=== PATIENT | female | born 1950 | race African-American/Black ===

== ENCOUNTER 2021-12-14 11:14 | Outpatient (CLI) | payer MEDICARE, SELFPAY ==
[2021-12-14 11:49] LABS: Hemoglobin 12.3 g/dL (12.0-15.0); Mean Corpuscular HGB Conc 31.5 g/dl (32-36); Mean Corpuscular Hemoglobin 23.9 pg (26-34); Mean Corpuscular Volume 75.9 fl (80-100); Mean Platelet Volume 9.9 fl (7.4-10.4); Platelet Count Result 287 k/mm3 (150-375); Red Blood Count 5.14 M/mm3 (4.2-5.4); Red Cell Distribution Width 15.8 % (11.5-14.5); White Blood Count 9.7 K/mm3 (4.5-10.0)
[2021-12-14 12:11] LABS: LDL Cholesterol Direct 58 mg/dL
[2021-12-14 12:17] LABS: Alanine Aminotransferase 45 U/L (6-35); Albumin Level 4.5 g/dL (3.5-5.1); Alkaline Phosphatase 85 U/L (38-126); Anion Gap 13 mmol/L (8-16); Aspartate Amino Transferase 45 U/L (14-36); Bilirubin,Total 0.7 mg/dL (0.2-1.3); Blood Urea Nitrogen 14 mg/dL (7-17); Calcium 9.4 mg/dL (8.4-10.2); Carbon Dioxide 24 mmol/L (22-30); Chloride 105 mmol/L (98-107); Cholesterol 122 mg/dL (0-200); Estimated Glomerular Filt Rate > 60; Glucose 107 mg/dL (65-110); HDL Direct 32 mg/dL; Potassium 3.8 mmol/L (3.4-5.0); Sodium 142 mmol/L (137-145); Triglycerides 88 mg/dL (<150)
[2021-12-14 12:21] LABS: Hemoglobin A1C 5.8 % (<5.7)
[2021-12-14 12:39] LABS: Iron 91 ug/dL (37-170)
[2021-12-14 12:49] LABS: Percent Iron Saturation 42 % (20-50)
== END 2021-12-14 11:15 | disposition home or self-care (01) ==
LOC: ANHLAB 11:15
PROVIDERS: PCP Family Medicine; Visit Provider Physician Assistant
DX: D64.9 Anemia, unspecified (principal); E11.9 Type 2 diabetes mellitus without complications; Z13.220 Encounter for screening for lipoid disorders
CPT/HCPCS: 36415; 80053; 80061; 83036; 83540; 83550; 85027

== ENCOUNTER 2022-05-18 11:48 | Outpatient (CLI) | payer MEDICARE, SELFPAY ==
[2022-05-18 13:11] LABS: Basophils Percent Auto 0.4 % (0.2-1.2); Eosinophils Absolute Auto 0.1 K/mm3 (0-0.3); Eosinophils Percent Auto 1.4 % (0-4.4); Hematocrit 39.5 % (37.0-47.0); Hemoglobin 12.5 g/dL (12.0-15.0); Immature Granulocyte Absolute 0.02 K/mm3 (0.00-0.031); Immature Granulocyte Percent A 0.2 % (0-0.5); Lymphocytes Absolute Auto 2.94 K/mm3 (0.9-3.2); Lymphocytes Percent Auto 29.1 % (18.3-44.2); Mean Corpuscular HGB Conc 31.6 g/dl (32-36); Mean Corpuscular Hemoglobin 23.2 pg (26-34); Mean Corpuscular Volume 73.4 fl (80-100); Mean Platelet Volume 10.5 fl (7.4-10.4); Monocytes Absolute Auto 0.9 K/mm3 (0.1-0.6); Monocytes Percent Auto 9.3 % (2.6-8.5); Neutrophils Percent Auto 59.6 % (45.5-73.1); Platelet Count Result 295 k/mm3 (150-375); Red Blood Count 5.38 M/mm3 (4.2-5.4); Red Cell Distribution Width 15.2 % (11.5-14.5); White Blood Count 10.1 K/mm3 (4.5-10.0)
[2022-05-18 13:24] LABS: Potassium 3.9 mmol/L (3.4-5.0)
[2022-05-18 13:25] LABS: Alanine Aminotransferase 40 U/L (6-35); Albumin Level 4.6 g/dL (3.5-5.1); Alkaline Phosphatase 85 U/L (38-126); Anion Gap 4 mmol/L (8-16); Aspartate Amino Transferase 30 U/L (14-36); Bilirubin,Total 0.8 mg/dL (0.2-1.3); Blood Urea Nitrogen 13 mg/dL (7-17); Calcium 10.1 mg/dL (8.4-10.2); Carbon Dioxide 31 mmol/L (22-30); Chloride 101 mmol/L (98-107); Estimated Glomerular Filt Rate > 60; Glucose 97 mg/dL (65-110); Sodium 136 mmol/L (137-145)
== END 2022-05-18 11:49 | disposition home or self-care (01) ==
LOC: ANHLAB 11:53
PROVIDERS: PCP Family Medicine; Visit Provider Internal Medicine Cardiovascular Disease
DX: I25.10 Atherosclerotic heart disease of native coronary artery without angina pectoris (principal); I10 Essential (primary) hypertension; E78.5 Hyperlipidemia, unspecified
CPT/HCPCS: 36415; 80053; 85025

== ENCOUNTER 2022-10-05 08:33 | Outpatient (CLI) | payer MEDICARE, SELFPAY ==
--- NOTE | ~2022-10-05 | MM_ITS ---
EXAMINATION: MM screening [facility] BI w eulogio HISTORY: Screening mammogram TECHNIQUE: Craniocaudal and mediolateral oblique 3-D tomosynthesis images were obtained and synthetic 2-D images were generated. CAD analysis was submitted and interpreted. COMPARISON: 06/17/2018, 08/25/2016, 04/11/2015 BREAST PARENCHYMAL COMPOSITION: There are scattered areas of fibroglandular density. FINDINGS: A stable mass of the outer right breast is considered benign given the lack of interval medardo nge. No suspicious mass, calcification, or architectural distortion are identified in either breast t o suggest malignancy. There has been no suspicious interval change. IMPRESSION: 1. No mammographic evidence of malignancy. 2. Recommend routine screening mammography in one year. BI-RADS Category 2: Benign finding(s). Reviewed, dictated and finalized at location A.
== END 2022-10-05 08:34 | disposition home or self-care (01) ==
LOC: ANHIMG 08:37
PROVIDERS: PCP Family Medicine; Visit Provider Physician Assistant Medical
DX: Z12.31 Encounter for screening mammogram for malignant neoplasm of breast (principal)
CPT/HCPCS: 77063; 77067

== ENCOUNTER 2023-01-08 11:32 | Outpatient (CLI) | payer MEDICARE, SELFPAY ==
[2023-01-08 12:02] LABS: Basophils Percent Auto 0.2 % (0.2-1.2); Eosinophils Absolute Auto 0.2 K/mm3 (0-0.3); Eosinophils Percent Auto 2.1 % (0-4.4); Hematocrit 37.8 % (37.0-47.0); Hemoglobin 11.9 g/dL (12.0-15.0); Immature Granulocyte Absolute 0.02 K/mm3 (0.00-0.031); Immature Granulocyte Percent A 0.2 % (0-0.5); Lymphocytes Absolute Auto 2.96 K/mm3 (0.9-3.2); Lymphocytes Percent Auto 34.3 % (18.3-44.2); Mean Corpuscular HGB Conc 31.5 g/dl (32-36); Mean Corpuscular Hemoglobin 23.8 pg (26-34); Mean Corpuscular Volume 75.8 fl (80-100); Mean Platelet Volume 10.2 fl (7.4-10.4); Monocytes Absolute Auto 0.8 K/mm3 (0.1-0.6); Monocytes Percent Auto 9.7 % (2.6-8.5); Neutrophils Absolute Auto 4.6 K/mm3 (1.3-6.7); Neutrophils Percent Auto 53.5 % (45.5-73.1); Platelet Count Result 269 k/mm3 (150-375); Red Blood Count 4.99 M/mm3 (4.2-5.4); Red Cell Distribution Width 15.2 % (11.5-14.5); White Blood Count 8.6 K/mm3 (4.5-10.0)
[2023-01-08 12:15] LABS: Alanine Aminotransferase 34 U/L (6-35); Albumin Level 4.3 g/dL (3.5-5.1); Alkaline Phosphatase 78 U/L (38-126); Anion Gap 5 mmol/L (8-16); Aspartate Amino Transferase 29 U/L (14-36); Bilirubin,Total 0.8 mg/dL (0.2-1.3); Blood Urea Nitrogen 14 mg/dL (7-17); Calcium 9.9 mg/dL (8.4-10.2); Carbon Dioxide 30 mmol/L (22-30); Chloride 103 mmol/L (98-107); Estimated Glomerular Filt Rate > 60; Glucose 100 mg/dL (65-110); Hemoglobin A1C 5.6 % (<5.7); Sodium 138 mmol/L (137-145)
[2023-01-08 12:45] LABS: Thyroid Stimulating Hormone 0.844 uIU/mL (0.465-4.680)
== END 2023-01-08 11:33 | disposition home or self-care (01) ==
PROVIDERS: PCP Family Medicine; Visit Provider Internal Medicine Cardiovascular Disease
DX: I25.10 Atherosclerotic heart disease of native coronary artery without angina pectoris (principal); R73.03 Prediabetes
CPT/HCPCS: 36415; 80053; 83036; 84443; 85025

== ENCOUNTER 2023-02-13 09:42 | Outpatient (CLI) | payer MEDICARE, SELFPAY ==
--- NOTE | ~2023-02-13 | CT_ITS ---
CT Scan of the Chest without Contrast: Clinical Indication: Lung cancer screening, personal history of nicotine dependence Technique: Contiguous sections were acquired throughout the chest without intravenous contrast. Dose reduction technique was used on this scan by utilizing automated exposure control and iterative recon struction technique. The dose-length product (DLP) was 207.41 mGy-cm. COMPARISON: 11/12/2018 Findings: There is no evidence of any significant mediastinal, hilar or axillary lymphadenopathy. There are ath erosclerotic calcifications of the aorta and coronary arteries. There is no evidence of pleural or pericardial effusion. Stable areas of chronic interstitial change in the upper lobes. No pulmonary nodule seen. Images through the upper abdomen reveal no abnormalities. Impression: Lung RADS 1: Negative. 12 month follow-up screening CT advised. Reviewed, dictated and finalized at [facility]. ISTICAL GENETICIST Impression: Lung RADS 1: Negative. 12 month follow-up screening CT advised.
== END 2023-02-13 09:43 | disposition home or self-care (01) ==
LOC: ANHIMG 09:45
PROVIDERS: PCP Family Medicine; Visit Provider Physician Assistant Medical
DX: Z12.2 Encounter for screening for malignant neoplasm of respiratory organs (principal); Z87.891 Personal history of nicotine dependence
CPT/HCPCS: 71271

== ENCOUNTER 2023-02-15 09:38 | Observation (INO) | payer MEDICARE, SELFPAY ==
[2023-02-15] VITALS (26 sets, daily range): BP systolic 112–158; BP diastolic 68–84; PULSE 69–97; RESP 12–19; TEMP 36–37.4; O2SAT 97–100; BMI 31.4
--- NOTE | 2023-02-15 | ECHO_ITS ---
Patient Info Name: Berkley Peck Age: 72 years : 1950 Gender: Female Ht: 66 in Wt: 216 lbs BSA: 2.18 m2 HR: 78 bpm BP: 134 / 70 mmHg Heart Rhythm: Sinus Rhythm Technical Quality: Fair Exam Date: 02/15/2023 3:22 PM Exam Location: Echo Lab Exam Room: 331 Patient Status: Inpatient Admit Date: 02/15/2023 Staff Ordering Physician: Tanya Quinn APRN Creative Perfumer: Dorys Cleveland RDCS Attending Provider: Odalis Treviño DO Referring Physician: Cheyenne REBOLLEDO; Exam Type: CA echo doppler w bubble study Study Info Indications - TIA R/O CSE Complete two-dimensional, color flow and Doppler transthoracic echocardiogram is performed with agitated saline. Contrast/Agitated Saline Contrast/Ag. Saline: Agitated Saline Amount: 20.00 ml Administered By: Allison Delacruz RN Existing IV Access: Yes IV Access Condition: patent with no signs of infiltration Summary 1. Normal left ventricular size with moderate concentric hypertrophy. There is overall good left ventricular systolic function with an ejection fraction of 60-65%. However there was basal inferior septal hypokinesis. Normal diastolic function. 2. Left atrial chamber dimension is mildly enlarged. 3. Mild pulmonary hypertension, estimated pulmonary arterial systolic pressure is 35 mmHg. 4. No significant valve disease. 5. No evidence of intracardiac shunting during normal respiration and Valsalva by bubble study. 6. Normal sinus rhythm. Left Ventricle Left ventricular chamber dimension is normal. Left ventricular systolic function is normal, estimated at 60-65%. There is moderately increased left ventricular wall thickness. Left ventricular septal wall motion is normal. The left ventricular diastolic function is normal. Right Ventricle Right ventricular chamber dimension is normal. Right ventricular systolic function is normal. Left Atria Left atrial chamber dimension is mildly enlarged. Right Atria Right atrial chamber dimension is normal. Aortic Valve The aortic valve is trileaflet. There is no aortic valve sclerosis. There is no aortic valve stenosis. There is no aortic valve regurgitation. Pulmonic Valve The pulmonic valve is normal. There is no pulmonic valve stenosis. There is no pulmonic regurgitation. Mitral Valve The mitral valve has normal leaflets. There is no mitral valve stenosis. There is trace mitral valve regurgitation. Tricuspid Valve The tricuspid valve leaflets are normal. There is no significant tricuspid valve stenosis. There is trace tricuspid valve regurgitation. Mild pulmonary hypertension, estimated pulmonary arterial systolic pressure is 35 mmHg. Pericardium/Pleural The pericardium appears normal. There is no pericardial effusion. Inferior Vena Cava Normal inferior vena cava with >50% collapse upon inspiration consistent with Empty right atrial pressure, 10 mmHg. Aorta The aortic root size at the sinus of Valsalva is normal. The prox ascending aorta size is normal. Left Ventricular Outflow Tract Name Value Normal LVOT 2D LVOT Diameter 2.0 cm LVOT Doppler LVOT Peak Gradient 5 mmHg LVOT Mean Gra
--- NOTE | ~2023-02-15 | MR_ITS ---
EXAMINATION: MR brain/brain stem wo/w con DATE: 02/15/2023 17:40 INDICATION: Left-sided numbness TECHNIQUE: Magnetic resonance imaging (MRI) of the brain and brainstem was performed without and with 20 mL Multihance intravenous contrast. Sequences included sagittal and axial T1-weighted SE, axial d iffusion-weighted FS SE, axial 3D SWAN, axial T2-weighted FLAIR, and axial T2-weighted FSE. Postcontr ast axial and coronal T1-weighted SE was obtained. Apparent diffusion coefficient (ADC) maps were cre ated. COMPARISON: Brain and carotid CT angiogram dated 02/15/2023 FINDINGS: There are no areas of restricted diffusion to suggest acute infarction. No intracranial hemorrhage or abnormal intracranial mass lesion. There are scattered areas of nonspecific increased T2-weighted si gnal intensity in the cerebral white matter, predominantly involving the deep and periventricular whi te matter which is within normal limits for age. There are no intraparenchymal signal abnormalities s een on the other pulse sequences. The ventricles are symmetric and normal in size. There are no abnor mal extra-axial fluid collections. Flow voids are seen in the cerebral arteries on the T2-weighted se quences consistent with their expected patency. Mild mucosal thickening the bilateral ethmoid sinuses . Changes of bilateral intraocular lens replacement. Visualized orbits and soft tissues are unremark able. There are no areas of abnormal enhancement on the post contrast images. IMPRESSION: 1. Normal aging brain. No acute intracranial process or abnormally enhancing brain lesions. Reviewed, dictated and finalized at location A. GER WORKERS COMPENSATION IMPRESSION: 1. Normal aging brain. No acute intracranial process or abnormally enhancing br ain lesions.
--- NOTE | ~2023-02-15 | CT_ITS ---
EXAMINATION: CTA brain carotid DATE: 02/15/2023 11:27 INDICATION: Left arm numbness. TECHNIQUE: Computed tomographic angiography (CTA) of the head was performed without and with 100 mL O mnipaque-350 intravenous contrast. CTA of the neck was performed with intravenous contrast. Automated exposure control and iterative reconstruction technique were employed. The dose-length product was 1 952.08 mGy-cm. Maximum intensity projection and volume rendered 3D-reconstructions were created by josemanuel martin technologist on a separate workstation. COMPARISON: Head CT 02/09/2005, chest CT 11/12/2018, 02/13/2023 FINDINGS: HEAD CTA: There is no intracranial hemorrhage, acute infarction, or abnormal intracranial mass lesion . There are scattered areas of low attenuation in the cerebral white matter, which is within normal l imits for the patient's age. The ventricles are normal in size. There are likely changes of ocular l ens replacement surgeries. The paranasal sinuses are clear. There is a small left mastoid effusion. T he vertebral arteries are codominant. There is no significant stenosis of basilar artery or the poste rior cerebral arteries. The posterior communicating arteries are normal. There is no significant sten osis of the intracranial internal carotid arteries or anterior or middle cerebral arteries. Anterior communicating artery is normal. There is no aneurysm. NECK CTA: There is mild emphysema. There are chronic groundglass opacities and septal thickening in t he upper lobes, consistent with scarring. There are no pathologically enlarged lymph nodes. There is a 4 mm nodule right thyroid lobe, likely not clinically significant. There is no significant stenosis of the vertebral arteries. There is plaque in the proximal internal carotid arteries. There is 0% st enosis of the proximal right internal carotid artery relative to normal distal artery lumen diameter (NASCET criteria). There is 0% stenosis of the proximal left internal carotid artery relative to norm al distal artery lumen diameter. There is mild cervical spondylosis. IMPRESSION: 1. Normal aging brain. No aneurysm or significant intracranial arterial stenosis. 2. 0% stenosis of the proximal internal carotid arteries relative to normal distal artery lumen diame ters (NASCET criteria). Reviewed, dictated and finalized at location A. TERSINKER BALANCE SCREW HOLE IMPRESSION: 1. Normal aging brain. No aneurysm or significant intracranial arterial stenosi s. 2. 0% stenosis of the proximal internal carotid arteries relative to normal dis suhail artery lumen diameters (NASCET criteria).
--- NOTE | ~2023-02-15 | XR_ITS ---
XR chest 2V DATE: 02/15/2023 11:27 INDICATION: Dizziness. Weakness, numbness, tingling of the head and hands. TECHNIQUE: PA and lateral views COMPARISON: 02/13/2023 CT lung screening 08/19/2013 2 view chest FINDINGS: Normal heart size. No hilar or mediastinal enlargement. No pulmonary infiltrate or consolidation, pleural effusion or pulmonary vascular congestion or pneumo thorax is detected. Degenerative spurring of the thoracic spine. Aortic arch calcification. IMPRESSION: No active cardiopulmonary disease Reviewed, dictated and finalized at location B. RUMENT TECHNICIAN APPRENTICE
--- NOTE | 2023-02-15 10:03 | ECG_ITS ---
Measurements Intervals [place] Rate: 81 P: 62 CT: 183 QRS: 0 QRSD: 110 T: -12 QT: 353 QTc: 412 Interpretive Statements SINUS RHYTHM ATRIAL COUPLET AND ATRIAL PREMATURE COMPLEX NONSPECIFIC ST ELEVATION IN ANT/HIGH LAT LEADS BORDERLINE ST-T WAVE ABNORMALITY- INF/LAT LEADS BORDERLINE ECG NO PREVIOUS ECG AVAILABLE FOR COMPARISON Electronically Signed On 02-15-2023 11:31:25 METAL BASE BLOCKER by Saurabh Lewis D.O.
[2023-02-15 10:19] LABS: Glucose Point of Care 109 mg/dl (65-105)
[2023-02-15 10:22] LABS: Basophils Percent Auto 0.3 % (0.2-1.2); Eosinophils Absolute Auto 0.2 K/mm3 (0-0.3); Eosinophils Percent Auto 2.4 % (0-4.4); Immature Granulocyte Absolute 0.01 K/mm3 (0.00-0.031); Immature Granulocyte Percent A 0.1 % (0-0.5); Lymphocytes Absolute Auto 2.23 K/mm3 (0.9-3.2); Lymphocytes Percent Auto 28.5 % (18.3-44.2); Mean Corpuscular HGB Conc 30.8 g/dl (32-36); Mean Corpuscular Hemoglobin 23.3 pg (26-34); Mean Corpuscular Volume 75.6 fl (80-100); Mean Platelet Volume 10.4 fl (7.4-10.4); Monocytes Absolute Auto 0.8 K/mm3 (0.1-0.6); Monocytes Percent Auto 10.5 % (2.6-8.5); Neutrophils Absolute Auto 4.6 K/mm3 (1.3-6.7); Neutrophils Percent Auto 58.2 % (45.5-73.1); Platelet Count Result 290 k/mm3 (150-375); Red Blood Count 5.16 M/mm3 (4.2-5.4); White Blood Count 7.8 K/mm3 (4.5-10.0)
[2023-02-15 10:33] LABS: Partial Thromboplastin Time 30.2 SECONDS (22.3-36.8); Prothrombin Time 13.4 Seconds (11.1-14.7)
[2023-02-15 10:34] LABS: Alanine Aminotransferase 39 U/L (6-35); Albumin Level 4.3 g/dL (3.5-5.1); Alkaline Phosphatase 75 U/L (38-126); Anion Gap 11 mmol/L (8-16); Aspartate Amino Transferase 29 U/L (14-36); Bilirubin,Total 0.7 mg/dL (0.2-1.3); Blood Urea Nitrogen 13 mg/dL (7-17); Carbon Dioxide 25 mmol/L (22-30); Chloride 106 mmol/L (98-107); Estimated CRCL calculation 59 ml/min; Estimated Glomerular Filt Rate > 60; Glucose 104 mg/dL (65-110); Potassium 3.9 mmol/L (3.4-5.0); Sodium 142 mmol/L (137-145)
[2023-02-15 10:48] LABS: Troponin I < 0.012 ng/mL (0.000-0.034)
[2023-02-15 11:19] LABS: Appearance Urine Turbid (Clear); Bacteria Urine None Seen /hpf; Bilirubin Urine Negative (Negative); Blood Urine Negative (Negative); Color Urine Yellow (Yellow); Glucose Urine UA Negative (Negative); Ketones Urine Trace mg/dL (Negative); Leukocyte Esterase Ur Negative LEU/UL (Negative); Nitrate Urine Negative (Negative); Non Pathogenic Casts 0-2; Protein Urine Negative (Negative); RBC Urine 0-2 /hpf (0-2); Specific Grav Ur 1.025 (1.001-1.035); Squamous Epithelial Cell Urine Occasional /hpf (Few); WBC Urine 0-5 /hpf; pH Urine 6.5 (5.0-9.0)
[2023-02-15 11:41] LABS: Add Urine Microscopic? YES
--- NOTE | 2023-02-15 12:19 | ED.NEUROSD ---
HPI - Neuro Symptoms/Deficit General Chief Complaint: Neuro Symptoms/Deficit Stated Complaint: numbness in left arm and head Time Seen by Provider: 02/15/23 09:52 Source: patient, RN notes reviewed and old records reviewed Mode of arrival: ambulatory Limitations: no limitations History of Present Illness HPI Narrative: This is a 72 year old female who presents for evaluation of left arm and left facial numbness. Patient states she went to bed last night at 10 pm and she woke up this morning at 7 am. She reports she woke up with left arm numbness and left facial, scalp numbness. She also reports shakiness. She has not noticed and weakness to her left arm or left leg. She has not noticed numbness to left leg. She denies facial drooping, speech difficulty. She denies history of CVA or TIA. She denies associated chest pain, shortness of breath. Related Data Home Medications Medication Instructions Recorded Confirmed ascorbate calcium (vitamin C) 500 500 mg PO DAILY 12/19/21 02/15/23 mg tablet aspirin 81 mg tablet,delayed 81 mg PO DAILY 12/19/21 02/15/23 release (Adult Aspirin Regimen) mecobalamin (vitamin B12) 1,000 1,000 mcg PO DAILY 12/19/21 02/15/23 mcg chewable tablet hzxhahkf-ygn-iemed ac 400 1 tablet PO DAILY 12/19/21 02/15/23 mcg-calcium carb 500 mg-vit K1 20 mcg tablet (Women's 50 Plus Multivitamin) omega 8-dpe-xye-fish oil 1,200 mg 1 cap PO DAILY 12/19/21 02/15/23 (144 mg-216 mg) capsule (Fish Oil) cholecalciferol (vitamin D3) 25 25 mcg PO DAILY 02/15/23 02/15/23 mcg (1,000 unit) tablet lisinopril 10 mg tablet 10 mg PO DAILY 02/15/23 02/15/23 Allergies Allergy/AdvReac Type Severity Reaction Status Date / Time egg Allergy Unknown unknown Verified 02/15/23 18:34 Review of Systems Review of Systems: All systems reviewed & are unremarkable except as noted in HPI and below Constitutional: Constitutional: Denies weakness Cardiovascular: Cardiovascular: Denies syncope, Denies rapid heart rate, Denies irregular heart rhythm, Denies leg edema and Denies dyspnea Respiratory: Respiratory: Denies chest congestion, Denies hemoptysis, Denies excessive phlegm production and Denies dyspnea Gastrointestinal: Gastrointestinal: Denies abdominal pain, Denies hematochezia, Denies diarrhea and Denies vomiting Genitourinary: Genitourinary: Denies hematuria and Denies dysuria Musculoskeletal: Musculoskeletal: Denies joint swelling, Denies loss of height and Denies muscle weakness Neurologic: Denies syncope, Denies focal weakness, Reports numbness and Denies weakness [facility] Past Medical History Medical History Asthma CAD (coronary artery disease) Hypercholesterolemia Hypertension Iron deficiency Prediabetes Uterine fibroid Surgical History Surgical History Stented coronary artery Family History Family History (Updated 02/15/23 @ 16:41 by Renee Brito RN) Sibling Carcinoma of colon Diabetes mellitus Sibling Asthma Father Diabetes mellitus Mother Hypertension Social History Social History (Updated 02/15/23 @ 14:56 by Tanya Quinn APRN) Social History: Says that she smoked for 40 years 1 pack per day. Stopped smoking about 7 years ago and then over the last year her so she smokes off and on. 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 She has no children Smoking packs per day: 1 Smoking cigarettes per day: 20.0 Years smoked: 30 Smoking pack-years: 30.00 Smoking status: Current some day smoker Second hand tobacco smoke exposure: No Smoking end date: 04/01/15 Alcohol intake: current Drinks per week: 2 Substance use: never Substance use type: does not use Lack of Transportation: No Lack of Food: Never True Current Housing: I Have Housing Concerned About Future Housing: No Difficulty Paying
--- NOTE | 2023-02-15 14:45 | PM.IMHP ---
H&P: HPI History of Present Illness Date/Time: 02/15/23 14:45 Chief Complaint: Left-sided arm numbness Narrative: This is a 72-year-old female with a past medical history of high blood pressure, high cholesterol, myocardial infarction status post stent placement in 2009. She presents to the ER today after experiencing left-sided arm numbness which progressed to left-sided face and head numbness. She states that she woke up at 7:30 a.m. this morning in her left arm was numb. She did take much of it she thought she had slept wrong. Over the course of the next 2 hours the numbness worsened and did travel to the left side of her face and posterior head. She also noted that she was acting clumsy was unable to put lids open jars and she has noticed that she was having a difficult time with responding when people ask her questions. Her symptoms have all resolved at this time. She says that last night she had a headache before bed for which she took Tylenol and went to sleep. She denies headache, dizziness, vision changes, facial drooping, or weakness to her lower extremities during this episode. She has never experienced anything like this before. In the ER her labs were essentially unremarkable. Initially when she presented she was a little hypertensive 150s over 80s but blood pressures have been ranging 1 teens to 130s this afternoon. CTA of her brain was negative. It shows normal aging brain with no aneurysm or significant intracranial arterial stenosis. Neurology has been consulted for TIA workup. Patient will be admitted under observation status. Echo, brain MRI, and head CTA have all been ordered. NIH is 0. Review of Systems Review of Systems: All systems reviewed & are unremarkable except as noted in HPI and below PMFSH Past Medical History Medical History Asthma CAD (coronary artery disease) Hypercholesterolemia Hypertension Iron deficiency Prediabetes Uterine fibroid Surgical History Surgical History Stented coronary artery Family History Family History Sibling Carcinoma of colon Other Asthma Diabetes mellitus Hypertension Social History Social History (Updated 02/15/23 @ 14:56 by Tanya Quinn APRN) Social History: Says that she smoked for 40 years 1 pack per day. Stopped smoking about 7 years ago and then over the last year her so she smokes off and on. 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 She has no children Smoking packs per day: 1 Smoking cigarettes per day: 20.0 Years smoked: 30 Smoking pack-years: 30.00 Smoking status: Current some day smoker Second hand tobacco smoke exposure: No Smoking end date: 04/01/15 Alcohol intake: current Drinks per week: 3 Substance use: never Substance use type: does not use Lack of Transportation: No Lack of Food: Never True Current Housing: I Have Housing Concerned About Future Housing: No Difficulty Paying Gas/Electric Bills: No Difficulty Paying for Meds: No Currently Unemployed: No Education: Master's Degree or Higher Difficulty w/ Childcare or Family Care: No Living arrangements: alone Additional living arrangements comments: She travels back and forth between [place] and [place]. She takes care of her mother and [place]. 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
--- NOTE | 2023-02-15 14:55 | PC.NURSE ---
This patient, Berkley Peck, was admitted to [facility] Surg Room 331-01. Patient/family oriented to hospital policies and general routines including ID bracelet, bed and alarms, visiting hours, pain management, procedures, bathroom and other care routines, personal items, smoking policy, room service/diet, and visiting hours. Information on how to activate the Rapid Response Team has been discussed. Patient/Family are encouraged to report perceived risks to care and to ask questions if they do not understand what they are told or what they should do.
[2023-02-15 17:34] LABS: Cholesterol 115 mg/dL (0-200); HDL Direct 31 mg/dL; Triglycerides 104 mg/dL (<150)
[2023-02-15 17:38] LABS: Hemoglobin A1C 5.6 % (<5.7)
[2023-02-15 17:45] LABS: LDL Cholesterol Direct 60 mg/dL
[2023-02-16] VITALS: PULSE 68
[2023-02-16 04:00] VITALS: PULSE 72
[2023-02-16 05:52] VITALS: BP 143/82; PULSE 70; RESP 16; TEMP 36.4; O2SAT 100
[2023-02-16 07:04] LABS: Basophils Percent Auto 0.3 % (0.2-1.2); Eosinophils Absolute Auto 0.3 K/mm3 (0-0.3); Eosinophils Percent Auto 3.7 % (0-4.4); Hematocrit 36.6 % (37.0-47.0); Hemoglobin 11.5 g/dL (12.0-15.0); Immature Granulocyte Absolute 0.01 K/mm3 (0.00-0.031); Immature Granulocyte Percent A 0.1 % (0-0.5); Lymphocytes Absolute Auto 2.92 K/mm3 (0.9-3.2); Lymphocytes Percent Auto 37.5 % (18.3-44.2); Mean Corpuscular HGB Conc 31.4 g/dl (32-36); Mean Corpuscular Hemoglobin 23.5 pg (26-34); Mean Corpuscular Volume 74.8 fl (80-100); Mean Platelet Volume 10.1 fl (7.4-10.4); Monocytes Absolute Auto 0.8 K/mm3 (0.1-0.6); Monocytes Percent Auto 10.4 % (2.6-8.5); Neutrophils Absolute Auto 3.7 K/mm3 (1.3-6.7); Platelet Count Result 283 k/mm3 (150-375); Red Blood Count 4.89 M/mm3 (4.2-5.4); Red Cell Distribution Width 15.6 % (11.5-14.5); White Blood Count 7.8 K/mm3 (4.5-10.0)
[2023-02-16 07:12] LABS: Alanine Aminotransferase 35 U/L (6-35); Alkaline Phosphatase 70 U/L (38-126); Anion Gap 8 mmol/L (8-16); Aspartate Amino Transferase 31 U/L (14-36); Bilirubin,Total 0.7 mg/dL (0.2-1.3); Blood Urea Nitrogen 12 mg/dL (7-17); Calcium 9.3 mg/dL (8.4-10.2); Carbon Dioxide 29 mmol/L (22-30); Chloride 103 mmol/L (98-107); Estimated CRCL calculation 56 ml/min; Estimated Glomerular Filt Rate > 60; Glucose 88 mg/dL (65-110); Magnesium 1.9 mg/dL (1.6-2.3); Sodium 140 mmol/L (137-145)
[2023-02-16 08:00] VITALS: PULSE 77
--- NOTE | 2023-02-16 08:08 | PM.IMPN ---
Progress Note: A&P Assessment and Plan (1) Paresthesia of left arm and leg: Code(s): R20.2 - Paresthesia of skin Status: Acute Assessment and Plan: Left-sided arm numbness and left facial/head numbness that occurred for 2 hours this morning. Now resolved Neurology has been consulted for TIA workup and recs are appreciated Head CTA negative, brain MRI pending, echo with bubble study ordered. Abdomen lipid panel, hemoglobin A1c TSH was normal NIH 0 02/16: No recurrent symptoms overnight. Lipid panel and A1c both normal. Continue with statin and asa. (2) CAD (coronary artery disease): Code(s): I25.10 - Atherosclerotic heart disease of [place] coronary artery without angina pectoris Status: Acute Assessment and Plan: history of CT with stent placement in [address] Kim takes daily ASA 81 mg (3) Hypertension: Qualifiers: Hypertension type: essential hypertension Qualified Code(s): I10 - Essential (primary) hypertension Code(s): I10 - Essential (primary) hypertension Status: Acute Assessment and Plan: Stable. Blood pressures were 150s over 80s on admission Blood pressure is now 130s over 70s Continue with home lisinopril (4) Hypercholesterolemia: Code(s): E78.00 - Pure hypercholesterolemia, unspecified Status: Acute Assessment and Plan: On atorvastatin 80 mg Lipid panel pending 02/16: Normal. Continue with Atorvastatin. Plan Feeding: Heart healthy diet Analgesia: Tylenol Thromboembolic prophylaxis: Lovenox Ulcer prophylaxis: Not indicated Glycemic control: Not indicated Bowel regimen: Not indicated Lines: PIV Antibiotics: None Disposition: Home today after Neurology sees her Subjective Date/time seen: 02/16/23 08:08 Interval history: This is a 72-year-old female with a past medical history of high blood pressure, high cholesterol, myocardial infarction status post stent placement in 2009.? She presents to the ER today after experiencing left-sided arm numbness which progressed to left-sided face and head numbness.? She states that she woke up at 7:30 a.m. this morning in her left arm was numb.? She did take much of it she thought she had slept wrong.? Over the course of the next 2 hours the numbness worsened and did travel to the left side of her face and posterior head.? She also noted that she was acting clumsy was unable to put lids open jars and she has noticed that she was having a difficult time with responding when people ask her questions.? Her symptoms have all resolved at this time.? She says that last night she had a headache before bed for which she took Tylenol and went to sleep.? She denies headache, dizziness, vision changes, facial drooping, or weakness to her lower extremities during this episode.? She has never experienced anything like this before. In the ER her labs were essentially unremarkable.? Initially when she presented she was a little hypertensive 150s over 80s but blood pressures have been ranging 1 teens to 130s this afternoon.? CTA of her brain was negative.? It shows normal aging brain with no aneurysm or significant intracranial arterial stenosis.? Neurology has been consulted for TIA workup.? Patient will be admitted under observation status.? Echo, brain MRI, and head CTA have all been ordered.? NIH is 0. 02/16: NAEON. She has not had any more episodes of the symptoms that initially brought her in. All imaging studies are back without concerning findings. Awaiting neurology to see the patient and then expect she can d/c home this afternoon. Review of Systems Review of Systems: All systems reviewed & are unremarkable except as noted in HPI and below Exam Narrative: General: well appearing, well developed, well nourished, appears stated age. HEENT: normocephalic, atraumatic. Mucous membranes moist. EOMI, PERRLA, bilateral sclera anicteric, no conjunctival injection. Neck padilla
[2023-02-16] MEDS: CYANOCOBALAMIN 1,000 MCG TABLET 1000 MCG PO (09:53)
[2023-02-16] MEDS: lisinopriL 10 MG TABLET PO (09:53)
[2023-02-16] MEDS: CHOLECALCIFEROL 1,000 UNITS TABLET 1000 UNITS PO (09:53)
[2023-02-16] MEDS: ASPIRIN 81 MG ENTERIC TABLET PO (09:53)
[2023-02-16] MEDS: OMEGA 3 POLYUNSAT FATTY ACIDS 1 GM CAP PO (09:53)
[2023-02-16] MEDS: ASCORBIC ACID 500 MG TABLET PO (09:53)
[2023-02-16] MEDS: THERAPEUTIC MULTIVITAMINS/MINERALS TAB (*BKC) 1 TABLET PO (09:53)
[2023-02-16] MEDS: FERROUS SULFATE 325 MG TABLET DR PO (09:53)
[2023-02-16 12:00] VITALS: PULSE 76
--- NOTE | 2023-02-16 13:44 | PM.DS ---
DS: Admitting Diagnosis Discharge Date 02/16/23 Admitting Diagnosis left sided weakness DS: Discharge Diagnosis Discharge Diagnosis (1) Paresthesia of left arm and leg: Code(s): R20.2 - Paresthesia of skin Status: Acute Assessment and Plan: Left-sided arm numbness and left facial/head numbness that occurred for 2 hours this morning. Now resolved Neurology has been consulted for TIA workup and recs are appreciated Head CTA negative, brain MRI pending, echo with bubble study ordered. Abdomen lipid panel, hemoglobin A1c TSH was normal NIH 0 02/16: No recurrent symptoms overnight. Lipid panel and A1c both normal. Continue with statin and asa. (2) CAD (coronary artery disease): Code(s): I25.10 - Atherosclerotic heart disease of alutiiq coronary artery without angina pectoris Status: Acute Assessment and Plan: history of [place] with stent placement in [address] Kim takes daily ASA 81 mg (3) Hypertension: Qualifiers: Hypertension type: essential hypertension Qualified Code(s): I10 - Essential (primary) hypertension Code(s): I10 - Essential (primary) hypertension Status: Acute Assessment and Plan: Stable. Blood pressures were 150s over 80s on admission Blood pressure is now 130s over 70s Continue with home lisinopril (4) Hypercholesterolemia: Code(s): E78.00 - Pure hypercholesterolemia, unspecified Status: Acute Assessment and Plan: On atorvastatin 80 mg Lipid panel pending 02/16: Normal. Continue with Atorvastatin. Plan Feeding: Heart healthy diet Analgesia: Tylenol Thromboembolic prophylaxis: Lovenox Ulcer prophylaxis: Not indicated Glycemic control: Not indicated Bowel regimen: Not indicated Lines: PIV Antibiotics: None Disposition: Home today after Neurology sees her DS: Summary Hospital Course Hospital Course: This is a 72-year-old female with a past medical history of high blood pressure, high cholesterol, myocardial infarction status post stent placement in 2009.? She presents to the ER today after experiencing left-sided arm numbness which progressed to left-sided face and head numbness.? She states that she woke up at 7:30 a.m. this morning in her left arm was numb.? She did take much of it she thought she had slept wrong.? Over the course of the next 2 hours the numbness worsened and did travel to the left side of her face and posterior head.? She also noted that she was acting clumsy was unable to put lids open jars and she has noticed that she was having a difficult time with responding when people ask her questions.? Her symptoms have all resolved at this time.? She says that last night she had a headache before bed for which she took Tylenol and went to sleep.? She denies headache, dizziness, vision changes, facial drooping, or weakness to her lower extremities during this episode.? She has never experienced anything like this before. In the ER her labs were essentially unremarkable.? Initially when she presented she was a little hypertensive 150s over 80s but blood pressures have been ranging 1 teens to 130s this afternoon.? CTA of her brain was negative.? It shows normal aging brain with no aneurysm or significant intracranial arterial stenosis.? Neurology has been consulted for TIA workup.? Patient will be admitted under observation status.? Echo, brain MRI, and head CTA have all been ordered.? NIH is 0. 02/16: NAEON. She has not had any more episodes of the symptoms that initially brought her in. All imaging studies are back without concerning findings. Awaiting neurology to see the patient and then expect she can d/c home this afternoon. I spoke with Dr Lombardo and discussed her case. He is okay with her discharging today and following up with Dr Kerr. Status at Discharge Cognitive/behavioral status at discharge: A&Ox4 Time Spent with Patient Time attestation: Total time spent providing and/or
[2023-02-16 14:00] VITALS: BP 133/73; PULSE 73; RESP 18; TEMP 35.7; O2SAT 99
== END 2023-02-16 14:05 | disposition home or self-care (01) ==
LOC: ANHED 12:44 → ANH3MEDSUR 02-16 13:51
PROVIDERS: Nurse Practitioner Acute Care; Admitting Provider Student in an Organized Health Care Education/Training Program; Emergency Provider General Practice; PCP Family Medicine; Visit Provider Internal Medicine
DX: R20.2 Paresthesia of skin (principal); J45.909 Unspecified asthma, uncomplicated; I25.10 Atherosclerotic heart disease of native coronary artery without angina pectoris; Z95.5 Presence of coronary angioplasty implant and graft; E78.00 Pure hypercholesterolemia, unspecified; I10 Essential (primary) hypertension; I25.2 Old myocardial infarction; E61.1 Iron deficiency; R73.03 Prediabetes; F17.210 Nicotine dependence, cigarettes, uncomplicated; F10.90 Alcohol use, unspecified, uncomplicated; R29.701 NIHSS score 1; Z79.82 Long term (current) use of aspirin; Z79.899 Other long term (current) drug therapy; Z82.5 Family history of asthma and other chronic lower respiratory diseases; Z82.49 Family history of ischemic heart disease and other diseases of the circulatory system
CPT/HCPCS: 36415; 70496; 70498; 70553; 71046; 80053; 80061; 81001; 82948; 83036; 83735; 84484; 85025; 85610; 85730; 93005; 93306; 96375; 99285; A9270; A9577; G0378; Q9967

== ENCOUNTER 2023-07-16 14:13 | Outpatient (CLI) | payer MEDICARE, SELFPAY ==
[2023-07-16 15:30] LABS: Basophils Percent Auto 0.2 % (0.2-1.2); Eosinophils Absolute Auto 0.2 K/mm3 (0-0.3); Eosinophils Percent Auto 1.9 % (0-4.4); Hematocrit 36.3 % (37.0-47.0); Hemoglobin 11.4 g/dL (12.0-15.0); Immature Granulocyte Absolute 0.02 K/mm3 (0.00-0.031); Immature Granulocyte Percent A 0.2 % (0-0.5); Lymphocytes Absolute Auto 3.29 K/mm3 (0.9-3.2); Lymphocytes Percent Auto 36.6 % (18.3-44.2); Mean Corpuscular HGB Conc 31.4 g/dl (32-36); Mean Corpuscular Hemoglobin 23.5 pg (26-34); Mean Corpuscular Volume 74.8 fl (80-100); Mean Platelet Volume 10.8 fl (7.4-10.4); Monocytes Absolute Auto 0.8 K/mm3 (0.1-0.6); Neutrophils Absolute Auto 4.7 K/mm3 (1.3-6.7); Neutrophils Percent Auto 52.1 % (45.5-73.1); Platelet Count Result 279 k/mm3 (150-375); Red Blood Count 4.85 M/mm3 (4.2-5.4); Red Cell Distribution Width 15.9 % (11.5-14.5)
[2023-07-16 15:33] LABS: Hemoglobin A1C 5.6 % (<5.7)
[2023-07-16 15:48] LABS: Alanine Aminotransferase 31 U/L (6-35); Albumin Level 4.4 g/dL (3.5-5.1); Alkaline Phosphatase 67 U/L (38-126); Anion Gap 9 mmol/L (4-12); Aspartate Amino Transferase 30 U/L (14-36); Bilirubin,Total 0.8 mg/dL (0.2-1.3); Blood Urea Nitrogen 12 mg/dL (7-17); Calcium 9.1 mg/dL (8.4-10.2); Carbon Dioxide 24 mmol/L (22-30); Chloride 105 mmol/L (98-107); Estimated Glomerular Filt Rate > 60; Glucose 85 mg/dL (65-110); Potassium 4.2 mmol/L (3.4-5.0); Sodium 138 mmol/L (137-145)
[2023-07-16 16:42] LABS: Hepatitis C Virus Antibody Negative (Negative)
[2023-07-16 17:40] LABS: Iron 60 ug/dL (37-170)
[2023-07-16 17:51] LABS: Percent Iron Saturation 26 % (20-50)
== END 2023-07-16 14:14 | disposition home or self-care (01) ==
LOC: ANHLAB 14:16
PROVIDERS: PCP Family Medicine; Visit Provider Physician Assistant Medical
DX: R73.03 Prediabetes (principal); D64.9 Anemia, unspecified; E78.2 Mixed hyperlipidemia; Z11.59 Encounter for screening for other viral diseases
CPT/HCPCS: 36415; 80053; 83036; 83540; 83550; 85025; 86803

== ENCOUNTER 2023-07-30 09:16 | Outpatient (CLI) | payer MEDICARE, SELFPAY ==
--- NOTE | ~2023-07-30 | US_ITS ---
US arterial ankle brachial ind INDICATION: Peripheral vascular disease TECHNIQUE: Segmental pressures and plethysmographic and Doppler waveforms of the brachial and lower e xtremity arteries were obtained. COMPARISON: None. FINDINGS: Right and left brachial artery pressures of 142 mm Hg and 140 mm Hg, respectively, are concordant (no rmal difference <= 30 mmHg). The right ankle-brachial index (OPHELIA) is 0.93 (normal >= 0.9-1.0). The right great toe-brachial index (TBI) is 0.95 (normal >= 0.60). The left OPHELIA is 1.14. The left TBI is 0.94. IMPRESSION: 1. Normal ankle-brachial indices. Reviewed, dictated and finalized at location B.
== END 2023-07-30 09:17 | disposition home or self-care (01) ==
PROVIDERS: PCP Family Medicine; Visit Provider Physician Assistant Medical
DX: I73.9 Peripheral vascular disease, unspecified (principal)
CPT/HCPCS: 93922

== ENCOUNTER 2023-11-01 10:47 | Outpatient (CLI) | payer MEDICARE, SELFPAY ==
--- NOTE | ~2023-11-01 | XR_ITS ---
Clinical Indication: Upper abdominal pain PA and lateral views of the chest: Comparison: 02/15/2023 Findings: The lungs are clear, without evidence of focal consolidation or pleural effusion. Cardiome diastinal silhouette is within normal limits. Bones and soft tissues are unremarkable. Impression: Normal chest. Reviewed, dictated and finalized at [facility]. Impression: Normal chest.
--- NOTE | ~2023-11-01 | XR_ITS ---
EXAMINATION: XR abdomen obstructive series DATE: 11/01/2023 11:03 INDICATION: Constipation. Bilateral upper abdominal pain. TECHNIQUE: Upright and supine views of the abdomen on 3 radiographs were obtained. COMPARISON: CT abdomen and pelvis 05/18/2016 FINDINGS: There are no dilated loops of bowel. There is a small volume of stool in the colon. No free intraperitoneal gas. IMPRESSION: 1. Normal bowel gas pattern. Reviewed, dictated and finalized at location A.
[2023-11-01 11:46] LABS: Lipase 248 U/L (23-300)
[2023-11-01 11:51] LABS: D Dimer 2.28 ug/mL (<0.48)
== END 2023-11-01 10:48 | disposition home or self-care (01) ==
PROVIDERS: PCP Family Medicine; Visit Provider Student in an Organized Health Care Education/Training Program
DX: K59.00 Constipation, unspecified (principal); R10.9 Unspecified abdominal pain; R14.0 Abdominal distension (gaseous); R10.13 Epigastric pain; R06.00 Dyspnea, unspecified; R07.81 Pleurodynia
CPT/HCPCS: 36415; 71046; 74019; 83690; 85380

== ENCOUNTER 2023-11-01 15:39 | Emergency (ER) | payer MEDICARE, SELFPAY ==
[2023-11-01] VITALS (20 sets, daily range): BP systolic 146–184; BP diastolic 78–105; PULSE 67–86; RESP 14–26; TEMP 36.8; O2SAT 97–100
--- NOTE | ~2023-11-01 | CT_ITS ---
EXAMINATION: CTA chest PE protocol DATE: 11/01/2023 18:51 INDICATION: Elevated d-dimer with pleuritic chest pain TECHNIQUE: Computed tomography (CT) pulmonary angiogram of the chest was performed with 100 mL Omnipa que-350 intravenous contrast. Additional 3D reconstructions utilizing coronal maximum intensity proje ction (MIP) were performed. Automated exposure control and iterative reconstruction technique were em ployed. The dose-length product was 386.69 mGy-cm. COMPARISON: None FINDINGS: No pulmonary embolism. Mild emphysema. Small residual mild septal line thickening and groundglass op[place] in the bilateral upper lobes most prominent in the anterior segment of the left upper lobe. Ad ditional mosaic attenuation with groundglass opacities in the bilateral lower lobes. Mild discoid ate lectasis at the lingula. No pleural effusion or pneumothorax. Heart size is normal. Atherosclerotic c oronary artery calcification is. Thoracic aorta is normal in caliber with no dissection. No pathologi jacek enlarged thoracic lymphadenopathy. 1.8 cm right renal cyst. Moderate thoracic kyphosis with mil d anterior wedging at a few mid thoracic vertebral bodies. IMPRESSION: 1. No pulmonary embolism. 2. Groundglass opacities in the bilateral lower lobes and with some irregular septal thickening in th e bilateral upper lobes which could represent mild pulmonary edema and/or pneumonia. Reviewed, dictated and finalized at location A. IMPRESSION: 1. No pulmonary embolism. 2. Groundglass opacities in the bilateral lower lobes and with some irregular s eptal thickening in the bilateral upper lobes which could represent mild pulmon sarabjit edema and/or pneumonia.
--- NOTE | ~2023-11-01 | CT_ITS ---
EXAMINATION: CT abdomen pelvis w con DATE: 11/01/2023 21:25 INDICATION: Right upper quadrant abdominal pain TECHNIQUE: Computed tomography (CT) of the abdomen and pelvis was performed with 100 mL Omnipaque-350 intravenous contrast. Automated exposure control and iterative reconstruction technique were employe d. The dose-length product was 806.10 mGy-cm. COMPARISON: 05/08/2016 FINDINGS: Mild emphysema. Minimal tree-in-bud opacity at the anterobasilar segment of the right lower lobe and anteroposterior right middle lobe consistent with endobronchial spread of disease and age-indetermina te pneumonia. Heart size is normal. Atherosclerotic coronary artery calcifications. No pericardial or pleural effusion. Mild intra and extra hepatic biliary ductal dilation with the common bile duct josé manuel suring up to 7 mm in maximal diameter in the mid duct. The distal duct appears decompressed. Liver is otherwise unremarkable. Gallbladder, spleen, pancreas and bilateral adrenal glands are normal. 1.9 c m cyst at the upper pole of the right kidney. Left kidney is normal. The bilateral renal collecting s ystems and ureters are opacified in their near entirety with no evident urothelial irregularities or filling defects. Bladder is normal. Multiple fibroids in the uterus. Bowels including the appendix ar e normal. No free intraperitoneal gas or fluid. No pathologically enlarged abdominal or pelvic lympha denopathy. Moderate lower lumbar spondylosis. IMPRESSION: 1. Mild intra and extra hepatic biliary ductal dilation with normal-appearing gallbladder. Correlate with liver function tests and consider MRCP for further evaluation as clinically indicated. 2. Subtle tree-in-bud opacities in the anterobasilar right lower lobe and anteroinferior right middle lobe consistent with pneumonia which could be either acute or chronic. 3. Fibroid uterus. Reviewed, dictated and finalized at location A. IMPRESSION: 1. Mild intra and extra hepatic biliary ductal dilation with normal-appearing g allbladder. Correlate with liver function tests and consider MRCP for further e valuation as clinically indicated. 2. Subtle tree-in-bud opacities in the anterobasilar right lower lobe and anter oinferior right middle lobe consistent with pneumonia which could be either acu te or chronic. 3. Fibroid uterus.
--- NOTE | 2023-11-01 17:59 | ED.GENADULT ---
HPI - General Adult General Chief complaint: Unspecified <Aly Martino APRN - Last Filed: 11/01/23 18:01> Stated complaint: Abnormal X-ray with PCP <Aly Martino APRN - Last Filed: 11/01/23 18:01> Time Seen by Provider: 11/01/23 18:00 <Aly Martino APRN - Last Filed: 11/01/23 18:01> patient presents with right rib pain since Saturday. patient saw her pcp and had labs drawn today. patient had an elevated d-dimer level and was told to come to the ER to r/o a pulmonary embolism. patient denies any other symptom. PE: A&OX3, BS non-labored, HR RRR with no murmur, moving all extremities, skin warm and intact <Aly Martino APRN - Last Filed: 11/01/23 18:01> Source: patient and old records reviewed <Shannan Christine PA-C - Last Filed: 11/02/23 02:12> Mode of arrival: ambulatory <Shannan Christine PA-C - Last Filed: 11/02/23 02:12> Limitations: no limitations <Shannan Christine PA-C - Last Filed: 11/02/23 02:12> History of Present Illness HPI narrative: Agree w/ above HPI. Patient reports over the last few days, she has had pain throughout her upper abdomen, pain with deep inspiration, and increased gas. She assumed she was constipated. States it has been at least two days since her last BM. She did have outpatient chest x-ray and abdomen x-ray performed today but is unsure of the results. States abdominal pain has improved and is much more infrequent of this time. Denies cough, hemoptysis, shortness of breath, chest pain, nausea, vomiting, lower extremity pain or swelling, history of blood clots. Denies recent long distance travel, immobilization, surgery. Denies history of cancer. Denies hormone therapy. <Shannan Christine PA-C - Last Filed: 11/02/23 02:12> Related Data Home medications: Home Medications Medication Instructions Recorded Confirmed ascorbate calcium (vitamin C) 500 500 mg PO DAILY 12/19/21 11/01/23 mg tablet aspirin 81 mg tablet,delayed 81 mg PO DAILY 12/19/21 11/01/23 release (Adult Aspirin Regimen) mecobalamin (vitamin B12) 1,000 1,000 mcg PO DAILY 12/19/21 11/01/23 mcg chewable tablet kgeyedpb-fwc-kpkke ac 400 1 tablet PO DAILY 12/19/21 11/01/23 mcg-calcium carb 500 mg-vit K1 20 mcg tablet (Women's 50 Plus Multivitamin) omega 1-nut-nlh-fish oil 1,200 mg 1 cap PO DAILY 12/19/21 11/01/23 (144 mg-216 mg) capsule (Fish Oil) cholecalciferol (vitamin D3) 25 25 mcg PO DAILY 02/15/23 11/01/23 mcg (1,000 unit) tablet lisinopril 10 mg tablet 10 mg PO DAILY 02/15/23 11/01/23 <Aly Martino APRN - Last Filed: 11/01/23 18:01> Allergies/adverse reactions: Allergies Allergy/AdvReac Type Severity Reaction Status Date / Time egg Allergy Unknown unknown Verified 11/01/23 09:36 <Aly Martino APRN - Last Filed: 11/01/23 18:01> Review of Systems Review of Systems: CONSTITUTIONAL: Denies fever, chills, or sweats. CARDIOVASCULAR: Denies chest pain, palpitations, or edema. RESPIRATORY: See HPI. GASTROINTESTINAL: See HPI. NEUROLOGIC: Denies headache, dizziness, numbness, or weakness. <Shannan Christine PA-C - Last Filed: 11/02/23 02:12> All systems reviewed & are unremarkable except as noted in HPI and below <Shannan Christine PA-C - Last Filed: 11/02/23 02:12> [facility] Past Medical History Medical History: Medical History Asthma CAD (coronary artery disease) Hypercholesterolemia Hypertension Iron deficiency Prediabetes Uterine fibroid <Aly Martino APRN - Last Filed: 11/01/23 18:01> Surgical History Surgical History: Surgical History Stented coronary artery <Aly Martino APRN - Last Filed: 11/01/23 18:01> Family History Family History: Family History Sibling Carcinoma of c
[2023-11-01 18:09] LABS: Basophils Percent Auto 0.3 % (0.2-1.2); Eosinophils Absolute Auto 0.3 K/mm3 (0-0.3); Eosinophils Percent Auto 2.9 % (0-4.4); Hematocrit 38.5 % (37.0-47.0); Hemoglobin 12.3 g/dL (12.0-15.0); Immature Granulocyte Absolute 0.01 K/mm3 (0.00-0.031); Immature Granulocyte Percent A 0.1 % (0-0.5); Lymphocytes Absolute Auto 3.03 K/mm3 (0.9-3.2); Lymphocytes Percent Auto 34.7 % (18.3-44.2); Mean Corpuscular HGB Conc 31.9 g/dl (32-36); Mean Platelet Volume 10.5 fl (7.4-10.4); Monocytes Absolute Auto 0.9 K/mm3 (0.1-0.6); Monocytes Percent Auto 9.9 % (2.6-8.5); Neutrophils Absolute Auto 4.5 K/mm3 (1.3-6.7); Neutrophils Percent Auto 52.1 % (45.5-73.1); Platelet Count Result 279 k/mm3 (150-375); Red Blood Count 5.13 M/mm3 (4.2-5.4); Red Cell Distribution Width 15.9 % (11.5-14.5); White Blood Count 8.7 K/mm3 (4.5-10.0)
[2023-11-01 18:17] LABS: Alanine Aminotransferase 30 U/L (6-35); Albumin Level 4.4 g/dL (3.5-5.1); Alkaline Phosphatase 76 U/L (38-126); Anion Gap 7 mmol/L (4-12); Aspartate Amino Transferase 26 U/L (14-36); Bilirubin,Total 0.4 mg/dL (0.2-1.3); Blood Urea Nitrogen 14 mg/dL (7-17); Calcium 10.1 mg/dL (8.4-10.2); Carbon Dioxide 32 mmol/L (22-30); Chloride 102 mmol/L (98-107); Estimated CRCL calculation 50 ml/min; Estimated Glomerular Filt Rate > 60; Glucose 94 mg/dL (65-110); Potassium 4.2 mmol/L (3.4-5.0); Sodium 141 mmol/L (137-145)
--- NOTE | 2023-11-01 21:09 | ECG_ITS ---
Test Date: 2023-11-01 21:34:09 Measurements Intervals [place] Rate: 75 P: 58 ND: 180 QRS: -1 QRSD: 120 T: -5 QT: 365 QTc: 408 Interpretive Statements SINUS RHYTHM NONSPECIFIC INTRAVENTRICULAR CONDUCTION DELAY [110+ ms QRS DURATION] NONSPECIFIC T-WAVE ABNORMALITY ABNORMAL ECG No previous ECG available for comparison Electronically Signed On 11-02-2023 08:19:28 CDT by José Wong M.D.
[2023-11-01 21:48] LABS: NT Pro B Type Natriuretic Pept 176 pg/mL (19.9-100); Troponin I < 0.012 ng/mL (0.000-0.034)
--- NOTE | 2023-11-01 22:28 | PC.NURSE ---
Called lab to add on lipase, spoke with Keri in lab.
[2023-11-01 22:38] LABS: Lipase 466 U/L (23-300)
== END 2023-11-01 23:51 | disposition home or self-care (01) ==
PROVIDERS: Nurse Practitioner Family; Emergency Provider Physician Assistant; PCP Family Medicine
DX: J18.9 Pneumonia, unspecified organism (principal); R07.81 Pleurodynia; K83.8 Other specified diseases of biliary tract; R74.8 Abnormal levels of other serum enzymes; I10 Essential (primary) hypertension; I25.10 Atherosclerotic heart disease of native coronary artery without angina pectoris; E78.00 Pure hypercholesterolemia, unspecified; J45.909 Unspecified asthma, uncomplicated; E61.1 Iron deficiency; R73.03 Prediabetes; Z95.5 Presence of coronary angioplasty implant and graft; Z87.891 Personal history of nicotine dependence; Z79.82 Long term (current) use of aspirin; Z79.899 Other long term (current) drug therapy; R94.31 Abnormal electrocardiogram [ECG] [EKG]; I45.9 Conduction disorder, unspecified; D25.9 Leiomyoma of uterus, unspecified
CPT/HCPCS: 36415; 71046; 71275; 74019; 74177; 80053; 83690; 83735; 83880; 84484; 85025; 85380; 93005; 99284; Q9967